=== PATIENT | female | born 1965 | race Hispanic/Latino ===

== ENCOUNTER → 2022-07-16 | Day surgery (SDC) | payer OTHER ==
[~2022-07-16] MED LIST: BUPIVACAINE 0.5%/EPI 30 ML SDV INJ ONE; CEFAZOLIN SODIUM 2 GM ONE; DEXAMETHASONE SOD PHOS INJ 4 MG/ML SDV ONE; EPHEDRINE SULFATE INJ 50 MG/ML VIAL ONE; FENTANYL CITRATE/PF 100MCG/2 ML INJ ONE; LOSARTAN-HCTZ1 EACH PO; METOPROLOL SUCC25 MG PO; MIDAZOLAM HCL 2 MG/2 ML VIAL ONE; ONDANSETRON HCL INJ 2MG/ML 2ML 2 MG/ML VIAL ONE; POVIDONE IODINE 0.05% 0.05 % ML PO ONE; PROPOFOL IV EMULSION 10 MG/ML 20 ML VIAL ONE
[2022-07-16 07:38] LABS: ANION GAP 13.9 mmol/L (8-16); CALCIUM 9.6 mg/dL (8.4-10.2); CREATININE, SERUM 0.67 mg/dL (0.57-1.11); POTASSIUM 3.9 mmol/L (3.5-5.1)
[2022-07-16 10:20] VITALS: BP 115/75
== END | disposition home or self-care (01) ==
LOC: OR 05:56
PROVIDERS: ATTEND Specialist
DX: S83.221A Peripheral tear of medial meniscus, current injury, right knee, initial encounter (principal); M17.11 Unilateral primary osteoarthritis, right knee; M22.41 Chondromalacia patellae, right knee; I10 Essential (primary) hypertension; E78.5 Hyperlipidemia, unspecified; X58.XXXA Exposure to other specified factors, initial encounter; Z01.810 Encounter for preprocedural cardiovascular examination; Z79.899 Other long term (current) drug therapy
CPT/HCPCS: 29881; 36415; 80048; 93005; J1100; J2250; J2405; J2704; J3010

== ENCOUNTER 2022-07-27 12:29 | Emergency (ER) | payer OTHER ==
[~2022-07-27] VITALS: Ht 157.5 cm; Wt 79.4 kg
[~2022-07-27 12:29] MED LIST changes: -BUPIVACAINE 0.5%/EPI 30 ML SDV INJ ONE; -CEFAZOLIN SODIUM 2 GM ONE; -DEXAMETHASONE SOD PHOS INJ 4 MG/ML SDV ONE; -EPHEDRINE SULFATE INJ 50 MG/ML VIAL ONE; -FENTANYL CITRATE/PF 100MCG/2 ML INJ ONE; -MIDAZOLAM HCL 2 MG/2 ML VIAL ONE; -ONDANSETRON HCL INJ 2MG/ML 2ML 2 MG/ML VIAL ONE; -POVIDONE IODINE 0.05% 0.05 % ML PO ONE; -PROPOFOL IV EMULSION 10 MG/ML 20 ML VIAL ONE
== END 2022-07-27 12:57 | disposition home or self-care (01) ==
LOC: ER 12:38
DX: R21 Rash and other nonspecific skin eruption (principal); L25.9 Unspecified contact dermatitis, unspecified cause; I10 Essential (primary) hypertension
CPT/HCPCS: 99282

== ENCOUNTER → 2022-08-12 | Outpatient (RCR) | payer OTHER | LOC: PT 10:48 | PROVIDERS: ATTEND Specialist | DX: Z47.89 Encounter for other orthopedic aftercare (principal); S83.221D Peripheral tear of medial meniscus, current injury, right knee, subsequent encounter ==

== ENCOUNTER 2022-09-04 14:51 | Outpatient (RCR) | payer OTHER | END 2022-09-12 | LOC: PT 14:51 | PROVIDERS: ATTEND Specialist | DX: Z47.89 Encounter for other orthopedic aftercare (principal); S83.221D Peripheral tear of medial meniscus, current injury, right knee, subsequent encounter ==

== ENCOUNTER 2022-10-09 15:00 | Outpatient (RCR) | payer OTHER | END 2022-10-12 | LOC: PT 15:00 | PROVIDERS: ATTEND Specialist | DX: Z47.89 Encounter for other orthopedic aftercare (principal); S83.221D Peripheral tear of medial meniscus, current injury, right knee, subsequent encounter ==